=== PATIENT | female | born 1955 | race Caucasian/White ===

== ENCOUNTER 2017-01-26 21:27 | Inpatient (IN) | payer OTHER ==
[~2017-01-26] VITALS: Ht 160 cm; Wt 82.4 kg
[~2017-01-26 21:27] MED LIST: CIPR250T27 PO; GLAT40SY SQ; OXYC5CAP2 PO; OXYC5TAB3 PO
[2017-01-26] MEDS ORDERED: IBUPROFEN 100 MG/5 ML UDC ONE (21:36)
[2017-01-26] MEDS ORDERED: ACETAMINOPHEN 650 MG/20.3 ML UDC ONE (21:37)
[2017-01-26] MEDS ORDERED: ONDANSETRON 2MG/ML, 2ML ONE (21:40)
[2017-01-26] MEDS ORDERED: HYDR1TAB12 PO (21:48)
[2017-01-26] MEDS ORDERED: ACETAMINOPHEN 325 MG TABLET PO ONE (22:00)
[2017-01-26] MEDS ORDERED: IBUPROFEN 200 MG TABLET PO ONE (22:00)
[2017-01-26] MEDS ORDERED: SODIUM CHLORIDE 0.9% 1,000ML IVBOLUS ONE (22:00)
[2017-01-26] MEDS ORDERED: ONDANSETRON 2MG/ML, 2ML IVPush ONE (22:00)
[2017-01-26 22:12] LABS: HEMATOCRIT 31.5 % (34.6-47.8); HEMOGLOBIN 10.9 g/dL (11.7-16.4); WHITE BLOOD COUNT 4.2 x10^3/uL (3.4-10)
[2017-01-26 22:21] LABS: ASPARTATE AMINO TRANSFERASE 12 U/L (15-37); BLOOD UREA NITROGEN 13 mg/dL (7-18)
[2017-01-26] MEDS ORDERED: CEFTRIAXONE PMX 1GM/50ML 50 ML ONE (23:27)
[2017-01-26] MEDS ORDERED: SODIUM CHLORIDE 0.9% 1,000 ML IV ONE (23:28)
[2017-01-26] MEDS ORDERED: CEFTRIAXONE PMX 1GM/50ML 50 ML IV ONE (23:30)
[2017-01-26] MEDS ORDERED: ONDANSETRON 2MG/ML, 2ML IVPush PRN (23:30)
[2017-01-27] MEDS ORDERED: LORazepam 1MG TABLET PO PRN
[2017-01-27] MEDS ORDERED: HYDROmorphone 2 MG/ML, 1ML IVPush PRN
[2017-01-27] MEDS ORDERED: ONDANSETRON 2MG/ML, 2ML IVPush PRN
[2017-01-27] MEDS ORDERED: hydrALAzine 20 MG/ML, 1ML IVPush PRN
[2017-01-27] MEDS: COPAXONE MC SCH ×4 (00:30→19:29)
[2017-01-27 00:38] VITALS: BP 98/60
[2017-01-27] MEDS: CEFTRIAXONE PMX 1GM/50ML 50 ML IV SCH (01:21)
[2017-01-27] MEDS: SODIUM CHLORIDE 0.9% 1,000 ML IV SCH ×2 (01:21→16:59)
[2017-01-27 05:00] LABS: HEMATOCRIT 28.8 % (34.6-47.8); HEMOGLOBIN 9.9 g/dL (11.7-16.4); WHITE BLOOD COUNT 3.9 x10^3/uL (3.4-10)
[2017-01-27 05:15] LABS: BLOOD UREA NITROGEN 11 mg/dL (7-18)
[2017-01-27 07:06] VITALS: BP 123/76
[2017-01-27] MEDS ORDERED: PANTOPRAZOLE 40 MG IV IVPush SCH (07:30)
[2017-01-27] MEDS: ENOXAPARIN 40 MG/0.4 ML SQ SCH (08:04)
[2017-01-27] MEDS ORDERED: GLATIRAMER ACETATE 40 MG IM SCH (09:00)
[2017-01-27] MEDS ORDERED: HYDROmorphone 1 MG/ML, 1ML IVPush PRN (09:00)
[2017-01-27] MEDS ORDERED: HYDROcodone/APAP 5/325 TABLET PO SCH (09:00)
[2017-01-27] MEDS ORDERED: POTASSIUM CHLORIDE 20 MEQ TAB.ER.PRT PO ONE (13:00)
[2017-01-27] MEDS: HYDROcodone/APAP 5/325 TABLET PO PRN ×2 (15:10→21:12)
[2017-01-27 15:17] VITALS: BP 104/57
[2017-01-27 20:07] VITALS: BP 105/70
[2017-01-28] MEDS: CEFTRIAXONE PMX 1GM/50ML 50 ML IV SCH (00:55)
[2017-01-28 02:47] VITALS: BP 114/73
[2017-01-28] MEDS: HYDROcodone/APAP 5/325 TABLET PO PRN ×2 (04:13→15:58)
[2017-01-28 05:17] LABS: HEMATOCRIT 28.1 % (34.6-47.8); HEMOGLOBIN 9.7 g/dL (11.7-16.4); WHITE BLOOD COUNT 3.4 x10^3/uL (3.4-10)
[2017-01-28 06:02] LABS: ASPARTATE AMINO TRANSFERASE 35 U/L (15-37); BLOOD UREA NITROGEN 10 mg/dL (7-18)
[2017-01-28] MEDS: ENOXAPARIN 40 MG/0.4 ML SQ SCH (08:23)
[2017-01-28 08:26] VITALS: BP 111/74
[2017-01-28] MEDS ORDERED: BISACODYL 10 MG SUPP PR PRN (08:30)
[2017-01-28] MEDS: SODIUM CHLORIDE 0.9% 1,000 ML IV SCH ×2 (08:30→20:09)
[2017-01-28] MEDS ORDERED: POLYETHYLENE GLYCOL 17 GM PACKET PO PRN (08:30)
[2017-01-28] MEDS: COPAXONE MC SCH ×3 (10:37→23:17)
[2017-01-28] MEDS: CEFTRIAXONE PMX 2GM/50ML 50 ML IV SCH (13:25)
[2017-01-28] MEDS: ACETAMINOPHEN 325 MG TABLET PO PRN ×2 (13:28→22:31)
[2017-01-28 15:59] VITALS: BP 107/74
[2017-01-28] MEDS: GLATIRAMER ACETATE 40 MG SQ SCH (20:09)
[2017-01-28 20:20] VITALS: BP 120/79
[2017-01-28] MEDS: DIPHENHYDRAMINE 50 MG CAPSULE PO PRN (22:31)
[2017-01-29 01:34] VITALS: BP 116/74
[2017-01-29] MEDS: HYDROcodone/APAP 5/325 TABLET PO PRN ×2 (04:23→17:16)
[2017-01-29 07:20] VITALS: BP 112/75
[2017-01-29] MEDS: COPAXONE MC SCH ×2 (08:30→16:30)
[2017-01-29] MEDS: ENOXAPARIN 40 MG/0.4 ML SQ SCH (08:53)
[2017-01-29] MEDS: ACETAMINOPHEN 325 MG TABLET PO PRN ×2 (08:53→21:46)
[2017-01-29] MEDS: SODIUM CHLORIDE 0.9% 1,000 ML IV SCH (11:25)
[2017-01-29] MEDS: CEFTRIAXONE PMX 2GM/50ML 50 ML IV SCH (12:50)
[2017-01-29 12:52] VITALS: BP 113/77
[2017-01-29 19:45] VITALS: BP 97/68
[2017-01-29] MEDS: DIPHENHYDRAMINE 50 MG CAPSULE PO PRN (21:46)
[2017-01-30 01:15] VITALS: BP 109/71
[2017-01-30] MEDS: SODIUM CHLORIDE 0.9% 1,000 ML IV SCH ×2 (01:37→15:47)
[2017-01-30] MEDS: COPAXONE MC SCH (01:37)
[2017-01-30] MEDS: ACETAMINOPHEN 325 MG TABLET PO PRN ×2 (04:03→20:44)
[2017-01-30 07:19] VITALS: BP 115/71
[2017-01-30] MEDS: HYDROcodone/APAP 5/325 TABLET PO PRN (07:45)
[2017-01-30 08:25] LABS: BLOOD UREA NITROGEN 6 mg/dL (7-18)
[2017-01-30 09:06] LABS: HEMATOCRIT 28.7 % (34.6-47.8); HEMOGLOBIN 9.9 g/dL (11.7-16.4)
[2017-01-30] MEDS: ENOXAPARIN 40 MG/0.4 ML SQ SCH (09:26)
[2017-01-30] MEDS ORDERED: POTASSIUM CHLORIDE 20 MEQ TAB.ER.PRT PO ONE (09:30)
[2017-01-30] MEDS: CEFTRIAXONE PMX 2GM/50ML 50 ML IV SCH (12:50)
[2017-01-30 13:59] VITALS: BP 120/78
[2017-01-30 19:22] VITALS: BP 118/68
[2017-01-30] MEDS: GLATIRAMER ACETATE 40 MG SQ SCH (20:39)
[2017-01-30] MEDS: DIPHENHYDRAMINE 50 MG CAPSULE PO PRN (20:43)
[2017-01-31 02:12] VITALS: BP 115/74
[2017-01-31] MEDS: HYDROcodone/APAP 5/325 TABLET PO PRN (02:16)
[2017-01-31] MEDS: SODIUM CHLORIDE 0.9% 1,000 ML IV SCH (05:45)
[2017-01-31 07:50] VITALS: BP 114/78
[2017-01-31] MEDS: ENOXAPARIN 40 MG/0.4 ML SQ SCH (09:00)
[2017-01-31] MEDS ORDERED: LEVO750T26 PO (09:01)
== END 2017-01-31 12:16 | disposition home or self-care (01) | DRG 872 ==
LOC: ED 21:59 → EDIP 23:31 → 3NE 01-27 00:08 → DCLOUNGE 01-31 12:05
PROVIDERS: ADMIT Internal Medicine; ATTEND Internal Medicine
PROC: 0T9B70Z Drainage of Bladder with Drainage Device, Via Natural or Artificial Opening (ICD-10-PCS; principal; 2017-01-26)
DX: A41.9 Sepsis, unspecified organism (principal); D69.6 Thrombocytopenia, unspecified; N30.01 Acute cystitis with hematuria; W01.0XXA Fall on same level from slipping, tripping and stumbling without subsequent striking against object, initial encounter; B96.20 Unspecified Escherichia coli [E. coli] as the cause of diseases classified elsewhere; D64.9 Anemia, unspecified; E87.6 Hypokalemia; G89.29 Other chronic pain; G35 Multiple sclerosis; Y93.89 Activity, other specified; Y92.89 Other specified places as the place of occurrence of the external cause; Y99.8 Other external cause status; Z87.442 Personal history of urinary calculi; Z98.51 Tubal ligation status; Z98.49 Cataract extraction status, unspecified eye
CPT/HCPCS: 36415; 70450; 71010; 76770; 80048; 80053; 81001; 83036; 83605; 83735; 84145; 85025; 87040; 87077; 87086; 87186; 93005; 96361; 96365; 96375; J0696; J1170; J1650; J2405; C9113; J7030